=== PATIENT | female | born 1985 | race Caucasian/White ===

== ENCOUNTER 2019-02-20 14:00 | Observation (INO) | payer MEDICAID, OTHER ==
[2019-02-20 15:04] VITALS: BP 112/75
[2019-02-20] MEDS ORDERED: PREN-217 PO (15:05)
[2019-02-20] MEDS ORDERED: NIFEdipine 10 MG CAPSULE PO ONE (15:30)
== END 2019-02-20 16:20 | disposition home or self-care (01) ==
LOC: 4S 14:00
PROVIDERS: ADMIT Obstetrics & Gynecology; ATTEND Obstetrics & Gynecology
DX: Z34.83 Encounter for supervision of other normal pregnancy, third trimester (principal); Z3A.32 32 weeks gestation of pregnancy
CPT/HCPCS: 81002; G0378

== ENCOUNTER 2019-02-28 13:58 | Observation (INO) | payer OTHER ==
[~2019-02-28 13:58] MED LIST: PREN-217 PO
[2019-02-28 14:34] VITALS: BP 128/87
== END 2019-02-28 15:00 | disposition home or self-care (01) ==
LOC: 4S 13:58
PROVIDERS: ADMIT Obstetrics & Gynecology; ATTEND Obstetrics & Gynecology
DX: O09.523 Supervision of elderly multigravida, third trimester (principal); Z3A.33 33 weeks gestation of pregnancy

== ENCOUNTER 2019-03-06 13:50 | Observation (INO) | payer OTHER ==
[~2019-03-06] VITALS: Ht 165.1 cm; Wt 93.0 kg
[2019-03-06] MEDS ORDERED: PREN-217 PO (13:57)
[2019-03-06 14:21] VITALS: BP 120/70
== END 2019-03-06 14:35 | disposition home or self-care (01) ==
LOC: 4S 13:50
PROVIDERS: ADMIT Obstetrics & Gynecology; ATTEND Obstetrics & Gynecology
DX: O09.523 Supervision of elderly multigravida, third trimester (principal); Z3A.34 34 weeks gestation of pregnancy
CPT/HCPCS: 81002; G0378

== ENCOUNTER 2019-03-21 15:10 | Observation (INO) | payer OTHER ==
[~2019-03-21] VITALS: Ht 165.1 cm; Wt 100.4 kg
[2019-03-21 15:38] VITALS: BP 124/76
== END 2019-03-21 16:05 | disposition home or self-care (01) ==
LOC: 4S 15:10
PROVIDERS: ADMIT Obstetrics & Gynecology; ATTEND Obstetrics & Gynecology
DX: O09.523 Supervision of elderly multigravida, third trimester (principal); Z3A.36 36 weeks gestation of pregnancy